=== PATIENT | female | born 1980 | race Caucasian/White ===

== ENCOUNTER 2022-05-19 09:59 | Outpatient (CLI) | payer BC ==
--- NOTE | 2022-05-19 15:37 | Mammography Report ---
BILATERAL FIRST EVER DIGITAL SCREENING MAMMOGRAM 3D/2D WITH AUGMENTATION: 05/19/2022 CLINICAL: Baseline exam. Routine screening. No prior exams were available for comparison. Both breasts are heterogeneously dense, which may obscure small masses (category c / 51-75% glandular tissue). Bilateral breast implants are intact. No significant masses, calcifications, or other findings are seen in either breast. IMPRESSION: NEGATIVE There is no mammographic evidence of malignancy. A 1 year screening mammogram is recommended. Based on the Tyrer Cuzick model (a risk assessment model) the patients lifetime risk is 10.3% and he r 10 year risk is 1.5%. According to the ACR, ACS, and NCCN guidelines, an annual breast MRI exam baljinder ng with mammogram is recommended if the patients lifetime risk is 20% or greater. This exam was interpreted at Station ID: [id number]. NOTE: For mammograms, a report in lay terms will be sent to the patient. Approximately 15% of breast malignancies will not be visualized mammographically. In the management of a palpable breast mass, a negative mammogram must not discourage biopsy of a clinically suspicious lesion. Electronically Signed By: Troy Medeiros M.D. acr/penrad:05/19/2022 11:27:35 ACR BI-RADS Category 1: Negative 3341F PARENCHYMAL PATTERN: (D) - The breast(s) demonstrate(s) heterogeneously dense fibroglandular partraciey ma. BI-RADS CATEGORY: (1) - 1 RECOMMENDATION: (ANNUAL) - Recommend routine annual screening mammography. [id number] 1 year screening LATERALITY: (B)
== END 2022-05-19 10:00 | disposition home or self-care (01) ==
LOC: DI.S 09:59
PROVIDERS: ATTEND Nurse Practitioner Family
DX: Z12.31 Encounter for screening mammogram for malignant neoplasm of breast (principal)

== ENCOUNTER 2023-01-28 07:31 | Outpatient (CLI) | payer BC ==
--- NOTE | 2023-01-28 12:05 | Ultrasound Report ---
PROCEDURE: Abdomen Limited INDICATIONS: RIGHT UPPER QUAD PAIN TECHNIQUE: Real-time focused scanning was performed of the abdomen, with image documentation. COMPARISONS: None. FINDINGS: Liver: Liver is normal in size and homogeneous in echotexture. Gallbladder: 2 mm gallbladder wall polyp present. No stones. No wall thickening. Biliary ducts: Intrahepatic bile ducts are non-dilated. Extrahepatic bile duct caliber measures 4 m m. Normal is 6-7 mm or less in diameter, or 10 mm or less post-cholecystectomy. Pancreas: Not well visualized due to overlying bowel gas. Right kidney: Normal in size and echotexture. Right kidney measures 9.9 cm long. No hydronephrosis o r nephrolithiasis. No solid masses. No complex renal cystic lesions which require follow-up. IVC: Intrahepatic inferior vena cava is patent. Miscellaneous: No free abdominal fluid. IMPRESSION: Benign gallbladder polyp; no further follow-up indicated. Otherwise unremarkable right upper quadrant abdominal ultrasound. Reviewed by: Malcom Swanson on 01/28/2023 12:04 PM PDT Approved by: Malcom Swanson on 01/28/2023 12:04 PM PDT Station ID: [id number]
== END 2023-01-28 07:32 | disposition home or self-care (01) ==
LOC: DI 07:31
PROVIDERS: ATTEND Registered Nurse
DX: R10.11 Right upper quadrant pain (principal); K82.4 Cholesterolosis of gallbladder

== ENCOUNTER 2023-02-09 15:01 | Outpatient (CLI) | payer BC ==
--- NOTE | 2023-02-09 19:47 | Ultrasound Report ---
PROCEDURE: Pelvic w/Transvaginal INDICATIONS: POSTCOITAL BLEEDING TECHNIQUE: Real-time scanning was performed of the pelvic organs, with image documentation. Additional endovagi nal scanning was necessary due to incomplete visualization of the adnexal and endometrial structures by transabdominal scanning. COMPARISON: None. FINDINGS: Uterus: Uterus is anteverted and normal in size at 7 x 4.2 x 5.5 cm. The myometrium is homogeneous. The endometrium measures 4.8 mm in combined thickness. An IUD is in place and appears in appropria te position. Nabothian cysts in the cervix. Vagina is unremarkable. Ovaries: The right ovary measures 3.3 x 2 x 1.6 cm, with a calculated ovarian volume of 5.8 cc. The left ovary measures 2.2 x 1.4 x 1.3 cm, with a calculated ovarian volume of 2.3 cc. The ovaries hav e a normal sonographic appearance. Less than 12 follicles can be seen in each ovary. No adnexal mas ses are seen. No cystic lesions measuring greater than 3 cm. Other: No pathologic free abdominal or pelvic fluid. IMPRESSION: 1. Normal sonographic appearance of the uterus with endometrial thickness of 4.8 mm. 2. IUD is in appropriate position. 3. Normal sonographic appearance of the bilateral ovaries. Reviewed by: John Renner MD on 02/09/2023 7:45 PM PDT Approved by: John Renner MD on 02/09/2023 7:45 PM PDT Station ID: [id number]
== END 2023-02-09 15:02 | disposition home or self-care (01) ==
LOC: DI 15:01
PROVIDERS: ATTEND Registered Nurse
DX: N93.0 Postcoital and contact bleeding (principal); Z97.5 Presence of (intrauterine) contraceptive device

== ENCOUNTER 2023-08-03 14:33 | Emergency (ER) | payer BC, OTHER ==
[2023-08-03 14:54] VITALS: BP 154/99; O2SAT 100
[2023-08-03] MEDS: IBUPROFEN 800 MG TABLET PO STA (15:47)
--- NOTE | 2023-08-03 15:54 | XRAY Report ---
PROCEDURE: Ankle 3+V LT INDICATIONS: Trauma TECHNIQUE: 3 views of the ankle were acquired. COMPARISON: None. FINDINGS: Bones: No fractures or dislocations. Ankle mortise is normally aligned. No suspicious bony lesions . Soft tissues: No tibiotalar joint effusion. Achilles tendon appears normal. IMPRESSION: No visualized acute fracture or dislocation. However, occult injury cannot be excluded. Recommend isidra rt interval imaging follow-up in 7-10 days as clinically indicated for additional evaluation. Reviewed by: Mikki Connor MD on 08/03/2023 3:52 PM PDT Approved by: Mikki Connor MD on 08/03/2023 3:52 PM PDT Station ID: [id number]
--- NOTE | 2023-08-03 15:58 | ED Physician Documentation ---
PD HPI LOWER EXT INJURY - Stated complaint Stated Complaint: LT ANKLE ROLL - Chief complaint Chief Complaint: Trauma Ext - History obtained from History obtained from: Patient - History of Present Illness PD HPI LOW EXT INJURY LOCATION: Left, Ankle Timing - onset: How many hours ago (1) Timing - duration: Hours (1) Timing - details: Abrupt onset Pain level max: 7 Pain level now: 4 Improved by: Rest, Ice, Immobilization Worsened by: Moving, Palpating Associated symptoms: Swelling. No: Weakness, Numbness, Tingling, Discolored Contributing factors: No: Anticoagulated, Prior ortho surgery - Additional information Additional information: 43-year-old female was walking in the parking lot of the hospital today taking her daughter's dog for a walk. She rolled her left ankle. No head, neck, back pain. No numbness or tingling. Worse with movement, better with rest. No other injuries. 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: Breast implants HEENT: Tonsil/Adenoidectomy - Present Medications Home Medications: Ambulatory Orders Medication Instructions Recorded Confirmed No Known Home Medications 08/03/23 08/03/23 - Allergies Allergies/Adverse Reactions: Allergies Allergy/AdvReac Type Severity Reaction Status Date / Time Sulfa (Sulfonamide AdvReac Cramps Verified 08/03/23 14:52 Antibiotics) - Social History Does the pt smoke?: Yes Smoking Status: Current every day smoker Does the pt drink ETOH?: Yes Does the pt have substance abuse?: Yes Substance Use and Type: Marijuana PD ED PE NORMAL - Vitals Vital signs reviewed: Yes - General General: Alert and oriented X 3, No acute distress - HEENT HEENT: Atraumatic, Moist mucous membranes - Neck Neck: Supple, no meningeal sign, No bony TTP - Derm Derm: Warm and dry - Extremities Extremities: Other (Left ankle - Tender to palpation over the lateral malleolus of the left ankle. Neurovascular intact. Mild swelling. Otherwise normal examination of the foot, ankle and left lower extremity.) - Neuro Neuro: Alert and oriented X 3 - Psych Psych: Normal mood, Normal affect Results - Vitals Vitals: Vital Signs - 24 hr 08/03/23 14:46 Temperature 36.5 C Heart Rate 64 Respiratory 15 Rate Blood Pressure 154/99 H O2 Saturation 100 Oxygen O2 Source Room air - Rads (name of study) Left ankle x-ray Relevant Findings:: Final report received, See rad report PD Medical Decision Making - ED course Complexity details: reviewed results, re-evaluated patient, considered differential, d/w patient ED course: No acute findings on x-ray of the left ankle. Placed in a gel splint and given crutches. Appears to be a ankle sprain. No evidence of ligamentous rupture. Will have her follow-up with her doctor for further care. Patient counseled regarding signs and symptoms for which I believe and urgent re-evaluation would be necessary. Patient with good understanding of and agreement to plan and is comfortable going home at this time This document was made in part using voice recognition software. While efforts are made to proofread this document, sound alike and grammatical errors may occur. Departure - Departure Disposition: 01 Home, Self Care Clinical Impression: Left ankle sprain Qualifiers: Encounter type: initial encounter Involved ligament of ankle: unspecified ligament Qualified Code(s): S93.402A - Sprain of unspecified ligament of left ankle, initial encounter Condition: Good Instructions: ED Sprain Ankle Follow-Up: JERRY SANTANA ARNP [Primary Care Provider] - Within 1 week Comments: Please follow-up with your doctor for further care. Please return if you worsen. Your x-ray does not show any acute abnormalities today. There is no evidence of fracture or dislocation. You may bear weight as tolerated. I do recommend Motrin and Tylenol as needed for pain. Forms: PCP List Discharge Date/Time: 08/03/23 16:15
== END 2023-08-03 16:15 | disposition home or self-care (01) ==
LOC: ED 14:33
DX: S93.402A Sprain of unspecified ligament of left ankle, initial encounter (principal); X50.1XXA Overexertion from prolonged static or awkward postures, initial encounter; Y93.K1 Activity, walking an animal; Y92.238 Other place in hospital as the place of occurrence of the external cause; F17.200 Nicotine dependence, unspecified, uncomplicated
CPT/HCPCS: 73610; 99283; A9270

== ENCOUNTER 2023-08-09 08:00 | Outpatient (CLI) | payer OTHER ==
--- NOTE | 2023-08-09 15:06 | XRAY Report ---
PROCEDURE: Ankle 3+V LT INDICATIONS: SPRAIN OF LEFT ANKLE TECHNIQUE: 3 views of the ankle were acquired. COMPARISON: None. FINDINGS: Bones: No acute fractures or dislocations. Ankle mortise is normally aligned. No suspicious bony l esions. Soft tissues: No suspicious soft tissue calcifications. IMPRESSION: No acute osseous abnormality. If there is clinical concern or persistent symptoms, additional imaging such as repeat radiographs or advanced imaging (e.g. CT, MRI) may be helpful for further evaluation. Reviewed by: Kelvin Carr MD on 08/09/2023 3:04 PM PDT Approved by: Kelvin Carr MD on 08/09/2023 3:04 PM PDT Station ID: [id number]
--- NOTE | 2023-08-09 15:29 | XRAY Report ---
PROCEDURE: Calcaneus 2+V LT INDICATIONS: UNSPECIFIED FRACTURE OF LEFT CALCANEUS TECHNIQUE: Two views of the calcaneus were acquired. COMPARISON: None. FINDINGS: Bones: No acute fractures or dislocations. No suspicious bony lesions. Soft tissues: No suspicious calcifications. Achilles tendon appears normal. IMPRESSION: No acute osseous abnormality. If there is clinical concern or persistent symptoms, additional imaging such as repeat radiographs or advanced imaging (e.g. CT, MRI) may be helpful for further evaluation. Reviewed by: Kelvin Carr MD on 08/09/2023 3:28 PM PDT Approved by: Kelvin Carr MD on 08/09/2023 3:28 PM PDT Station ID: [id number]
== END 2023-08-09 23:59 | disposition home or self-care (01) ==
LOC: DI.S 08:00
PROVIDERS: ATTEND Physician Assistant Medical
DX: S93.402A Sprain of unspecified ligament of left ankle, initial encounter (principal); S92.002A Unspecified fracture of left calcaneus, initial encounter for closed fracture